=== PATIENT | male | born 1975 | race Caucasian/White ===

== ENCOUNTER 2021-07-16 17:41 | Emergency (ER) | payer BC, OTHER ==
[~2021-07-16 17:41] MED LIST: LOPRESSOR 50 MG50 MG PO
[2021-07-16 20:15] LABS: HEMOGLOBIN 17.3 gm/dl (14.0-17.5); RED BLOOD COUNT 5.49 M/UL (4.20-5.50); WHITE BLOOD COUNT 7.3 K/UL (4.5-11.0)
[2021-07-16] MEDS ORDERED: MIRALAX 119 GR119 GM PO (20:48)
== END 2021-07-16 22:05 | disposition home or self-care (01) ==
LOC: ER1 17:41
PROVIDERS: Emergency Medicine
DX: K59.00 Constipation, unspecified (principal)
CPT/HCPCS: 74018; 80048; 85025; 99283

== ENCOUNTER 2021-08-22 08:58 | Emergency (ER) | payer BC, OTHER ==
[~2021-08-22 08:58] MED LIST changes: +MIRALAX 119 GR119 GM PO
[2021-08-22] MEDS ORDERED: CITRATE OF MAG296 ML PO (09:34)
== END 2021-08-22 09:40 | disposition home or self-care (01) ==
LOC: ER1 08:58
DX: K59.00 Constipation, unspecified (principal)
CPT/HCPCS: 99283